=== PATIENT | male | born 1960 | race Caucasian/White ===

== ENCOUNTER 2017-05-13 06:33 | Day surgery (SDC) | payer OTHER ==
[2017-05-13] MEDS ORDERED: PERCOCET 5-3251 EACH PO (10:58)
== END 2017-05-13 12:20 | disposition home or self-care (01) ==
LOC: CIR.AMB 06:33
DX: C20 Malignant neoplasm of rectum (principal)
CPT/HCPCS: 36561; C1751

== ENCOUNTER 2017-09-07 05:16 | Day surgery (SDC) | payer OTHER ==
[~2017-09-07 05:16] MED LIST: PERCOCET 5-3251 EACH PO
== END 2017-09-07 10:20 | disposition home or self-care (01) ==
LOC: AMB-ENDOS 05:16 → CIR.AMB 12:00
DX: C20 Malignant neoplasm of rectum (principal)

== ENCOUNTER 2017-09-10 11:23 | Inpatient (IN) | payer OTHER ==
[~2017-09-10] VITALS: Ht 175.3 cm; Wt 111.1 kg
[2017-09-27] MEDS ORDERED: PANTOPRAZOLE SO40 MG PO (12:07)
[2017-09-27] MEDS ORDERED: OXYC1TAB9 PO (12:07)
[2017-09-27] MEDS ORDERED: NABUMETONE500 MG PO (12:07)
[2017-09-27] MEDS ORDERED: Intestinex CAP PO (12:08)
== END 2017-09-27 13:27 | disposition home or self-care (01) | DRG 330 ==
LOC: SURH 09-23 08:30 → O/R 09-23 10:53 → SURH 09-23 10:53
PROVIDERS: Surgery
PROC: 0DJD4ZZ Inspection of Lower Intestinal Tract, Percutaneous Endoscopic Approach (ICD-10-PCS; 2017-09-23)
PROC: 07TC0ZZ Resection of Pelvis Lymphatic, Open Approach (ICD-10-PCS; 2017-09-23)
PROC: 0D1N0Z4 Bypass Sigmoid Colon to Cutaneous, Open Approach (ICD-10-PCS; 2017-09-23)
PROC: 0DTN0ZZ Resection of Sigmoid Colon, Open Approach (ICD-10-PCS; principal; 2017-09-23 08:30)
PROC: B020ZZZ Computerized Tomography (CT Scan) of Brain (ICD-10-PCS; 2017-09-24)
DX: C20 Malignant neoplasm of rectum (principal); M96.89 Other intraoperative and postprocedural complications and disorders of the musculoskeletal system

== ENCOUNTER 2017-09-22 06:12 | Outpatient (CLI) | payer OTHER | END 2017-09-22 06:14 | disposition home or self-care (01) | LOC: LAB 06:12 | DX: D01.0 Carcinoma in situ of colon (principal) ==

== ENCOUNTER 2018-09-13 09:41 | Day surgery (SDC) | payer OTHER ==
[~2018-09-13 09:41] MED LIST changes: +Intestinex CAP PO; +NABUMETONE500 MG PO; +OXYC1TAB9 PO; +PANTOPRAZOLE SO40 MG PO
== END 2018-09-13 13:20 | disposition home or self-care (01) ==
LOC: AMB-ENDOS 09:41
DX: K62.89 Other specified diseases of anus and rectum (principal)